=== PATIENT | male | born 1985 | race Caucasian/White ===

== ENCOUNTER → 2016-09-05 | Outpatient (CLI) | payer BC | LOC: RAD 16:35 | DX: M54.31 Sciatica, right side (principal) ==

== ENCOUNTER 2016-10-03 15:30 | Outpatient (RCR) | payer BC | END 2016-11-20 11:56 | disposition home or self-care (01) | LOC: PT 15:30 | DX: M54.31 Sciatica, right side (principal) | CPT/HCPCS: G0283-GP ==

== ENCOUNTER → 2017-05-22 | Outpatient (CLI) | payer BC | LOC: LAB 15:09 | DX: R05 Cough (principal) ==